=== PATIENT | male | born 1970 | race African-American/Black ===

== ENCOUNTER 2025-06-20 13:58 | Inpatient (IN) | payer OTHER ==
[2025-06-20 14:55] LABS: #Basophils 0.05 10x3/uL (0.0-0.2); #Eosinophils 0.71 10x3/uL (0.0-0.7); #Monocytes 0.63 10x3/uL (0.11-0.59); #Neutrophils 4.07 10x3/uL (1.40-6.50); %Basophils 0.5 % (0.0-1.0); %Eosinophils 7.6 % (0.0-10.0); %Lymphocytes 41.1 % (21.0-51.0); %Monocytes 6.8 % (0.0-10.0); %Neutrophils 43.8 % (42.0-75.0); Hematocrit 40.5 % (42.0-52.0); Hemoglobin 13.3 g/dL (14.0-18.0); Mean Corpuscular Hemoglobin 28.7 pg (27.0-31.0); Mean Corpuscular Volume 87.5 fL (78.0-98.0); Platelet Count 299 10x3/uL (130-400); Red Blood Cell (RBC) Count 4.63 mill/uL (4.70-6.10); White Blood Cell (WBC) Count 9.31 10x3/uL (4.8-10.8)
[2025-06-20 15:14] LABS: ALT (SGPT) 42 U/L (Less than 45); AST (SGOT) 33 U/L (11-34); Albumin 3.8 g/dL (3.1-4.5); Alkaline Phosphatase 115 U/L (40-110); Anion Gap 15 mmol/L (10-20); BUN (Urea Nitrogen) 10 mg/dL (8.4-25.7); Bilirubin, Total 0.6 mg/dL (0.3-1.2); Calc. Creatinine Clearance 0 mL/min (70-130); Calcium 8.9 mg/dL (7.8-10.44); Carbon Dioxide 27 mmol/L (22-29); Chloride 98 mmol/L (98-107); Globulin 3.4 g/dL (2.4-3.5); Glucose 198 mg/dL (70-105); Potassium 3.8 mmol/L (3.5-5.1); Sodium 136 mmol/L (136-145)
[2025-06-20] MEDS ORDERED: Glucagon 1 MG/ML KIT IM PRN (18:39)
[2025-06-20] MEDS ORDERED: Dextrose 50% Abboject 50 ML SYRINGE SLOW IVP PRN (18:39)
[2025-06-20] MEDS: Carvedilol 6.25 MG TAB PO SCH (22:15)
[2025-06-21 04:22] LABS: #Basophils 0.05 10x3/uL (0.0-0.2); #Eosinophils 0.74 10x3/uL (0.0-0.7); #Monocytes 0.78 10x3/uL (0.11-0.59); #Neutrophils 4.81 10x3/uL (1.40-6.50); %Basophils 0.5 % (0.0-1.0); %Eosinophils 7.5 % (0.0-10.0); %Lymphocytes 35.3 % (21.0-51.0); %Monocytes 7.9 % (0.0-10.0); %Neutrophils 48.6 % (42.0-75.0); Hematocrit 38.0 % (42.0-52.0); Hemoglobin 12.9 g/dL (14.0-18.0); Mean Corpuscular Hemoglobin 29.1 pg (27.0-31.0); Mean Corpuscular Volume 85.8 fL (78.0-98.0); Platelet Count 270 10x3/uL (130-400); Red Blood Cell (RBC) Count 4.43 mill/uL (4.70-6.10); White Blood Cell (WBC) Count 9.89 10x3/uL (4.8-10.8)
[2025-06-21 04:45] LABS: Anion Gap 15 mmol/L (10-20); BUN (Urea Nitrogen) 9 mg/dL (8.4-25.7); Calc. Creatinine Clearance 166 mL/min (70-130); Calcium 8.8 mg/dL (7.8-10.44); Carbon Dioxide 24 mmol/L (22-29); Chloride 102 mmol/L (98-107); Glucose 177 mg/dL (70-105); Potassium 3.4 mmol/L (3.5-5.1); Sodium 138 mmol/L (136-145)
[2025-06-21] MEDS: cloNIDine 0.1 MG TAB PO SCH (06:04)
[2025-06-21] MEDS ORDERED: FLU (Fluarix Triv) 25-26 (6MOS UP)/PF 45 MCG/0.5 ML Syringe IM ONE (09:00)
[2025-06-21] MEDS ORDERED: PNEUMOC 20-VAL CONJ-DIP CRM/PF 0.5 ML SYRINGE IM ONE (09:00)
[2025-06-21] MEDS: Carvedilol 6.25 MG TAB PO SCH (09:12)
[2025-06-21] MEDS: NIFEdipine XL 60 MG ER.TAB PO SCH (09:12)
[2025-06-21] MEDS: Acetaminophen 325 MG TAB PO PRN (21:32)
[2025-06-22 10:19] VITALS: TEMP 98
[2025-06-22 11:59] VITALS: BP 141/90
== END 2025-06-22 11:40 | disposition home or self-care (01) | DRG 305 ==
LOC: ERS 13:58 → 2NO 17:24 → OBSVTOIN 06-21 11:10
PROVIDERS: ADMIT Internal Medicine; ATTEND Internal Medicine
DX: I16.0 Hypertensive urgency (principal); I24.89 Other forms of acute ischemic heart disease; F17.210 Nicotine dependence, cigarettes, uncomplicated; E11.9 Type 2 diabetes mellitus without complications; E87.6 Hypokalemia; D64.9 Anemia, unspecified; Z79.899 Other long term (current) drug therapy; Z79.84 Long term (current) use of oral hypoglycemic drugs; Z91.148 Patient's other noncompliance with medication regimen for other reason
CPT/HCPCS: 36415; 36416; 70450; 71045; 80048; 80053; 83036; 84484; 85025; 93005; 94760; 96374; G0378; J1815